=== PATIENT | female | born 1990 | race Two or more races ===

== ENCOUNTER 2020-07-25 16:55 | Outpatient (REF) | payer OTHER, SELFPAY | END 2020-07-25 16:56 | disposition home or self-care (01) | LOC: HO.LAB 16:55 | PROVIDERS: Visit Provider Internal Medicine | DX: Z20.828 Contact with and (suspected) exposure to other viral communicable diseases (principal) | CPT/HCPCS: C9803; U0003 ==

== ENCOUNTER 2020-08-11 16:53 | Outpatient (REF) | payer OTHER, SELFPAY | END 2020-08-11 16:54 | disposition home or self-care (01) | LOC: HO.LAB 16:53 | PROVIDERS: Visit Provider Internal Medicine | DX: Z20.828 Contact with and (suspected) exposure to other viral communicable diseases (principal) | CPT/HCPCS: C9803; U0003 ==

== ENCOUNTER 2020-11-13 10:15 | Outpatient (REF) | payer OTHER, SELFPAY ==
[2020-11-13 10:35] LABS: COVID-19 Test Negative (Negative)
== END 2020-11-13 10:16 | disposition home or self-care (01) ==
LOC: HO.LAB 10:15
PROVIDERS: Visit Provider Internal Medicine
DX: Z20.822 Contact with and (suspected) exposure to COVID-19 (principal)
CPT/HCPCS: 36415; 87635; C9803